=== PATIENT | female | born 1995 | race Two or more races ===

== ENCOUNTER 2017-04-23 20:36 | Emergency (ER) | payer MEDICAID, OTHER ==
[~2017-04-23] VITALS: Ht 170.2 cm; Wt 60.8 kg
[2017-04-23 21:05] LABS: Urine Bilirubin Negative (Negative); Urine Blood Negative /uL (Negative); Urine Color Yellow (Yellow); Urine Glucose Normal (Normal); Urine Ketone Negative (Negative); Urine Nitrite Negative (Negative); Urine RBC 3 /hpf (0 - 4); Urine Squamous Epithelial Cell MOD /hpf (<5); Urine Urobilinogen Normal (Negative)
[2017-04-23 22:18] LABS: Basophils # (auto) 0.1 uL; Basophils % (auto) 1.3 % (0.0-2.0); Eosinophils # (auto) 0.2 uL; Hematocrit 31.3 % (36.0-46.0); Hemoglobin 10.2 g/dL (12.2-16.2); Lymphocytes # (auto) 2.2 uL; Lymphocytes % (auto) 24.6 % (10.0-50.0); Mean Corpuscular Hgb Conc. 32.5 g/dL (32.0-36.0); Mean Corpuscular Volume 83.1 fL (80.0-100.0); Mean Platelet Volume 7.6 fL (6.9-10.8); Monocytes # (auto) 0.7 uL; Monocytes % (auto) 7.9 % (0.0-12.0); Neutrophils # (auto) 5.8 uL; Neutrophils % (auto) 64.2 % (37.0-80.0); Nucleated Red Blood Cells % 0.1 %; Platelet Count (auto) 375 10^3/uL (140-450); White Blood Cell 9.1 10^3/uL (4.4-10.8)
[2017-04-23 22:39] LABS: Potassium 3.8 mmol/L (3.5-5.1)
[2017-04-23 22:44] LABS: Albumin 3.4 g/dL (3.4-5.0); Calcium 8.5 mg/dL (8.5-10.1)
[2017-04-23 22:47] LABS: Bilirubin, Total 0.2 mg/dL (0.2-1.0)
[2017-04-24] MEDS ORDERED: MORPHINE SULF INJ 2 MG/ML SYRINGE 1ML IV ONE (00:45)
[2017-04-24] MEDS ORDERED: ONDANSETRON HCL 4 MG/2 ML VIAL IV ONE (00:45)
[2017-04-24] MEDS ORDERED: SODIUM CHLORIDE 0.9% 1,000 ML IV ONE (00:45)
[2017-04-24] MEDS ORDERED: GASTROGRAFIN 120 ML SOL ONE (00:51)
[2017-04-24 07:21] VITALS: BP 122/72
== END 2017-04-24 07:38 | disposition home or self-care (01) ==
LOC: ER 20:36
DX: K22.0 Achalasia of cardia (principal); K22.2 Esophageal obstruction
CPT/HCPCS: 36415; 74220; 80053; 81001; 81025; 82150; 83690; 85025; 96361; 96374; 96375; 99285; J2270; J2405; J7030; Q9963

== ENCOUNTER 2018-02-22 18:09 | Emergency (ER) | payer MEDICARE, MEDICAID ==
[~2018-02-22] VITALS: Ht 170.2 cm; Wt 63.5 kg
[2018-02-22 18:24] VITALS: BP 110/65
[2018-02-22] MEDS ORDERED: methylPREDNISolone SOD SUCC 125 MG/2 ML VL IM ONE (20:00)
[2018-02-22] MEDS ORDERED: FAMOTIDINE 20 MG TAB PO ONE (20:00)
[2018-02-22] MEDS ORDERED: diphenhdrAMINE HCL 25 MG CAP PO ONE ×2 (20:00)
[2018-02-22] MEDS ORDERED: FAMOTIDINE 20 MG TAB ONE (20:01)
== END 2018-02-22 20:41 | disposition home or self-care (01) ==
LOC: ER 18:18
DX: L50.9 Urticaria, unspecified (principal); T78.40XA Allergy, unspecified, initial encounter; Z91.013 Allergy to seafood; X58.XXXA Exposure to other specified factors, initial encounter
CPT/HCPCS: 96372; 99283; J2930